=== PATIENT | female | born 1995 | race Two or more races ===

== ENCOUNTER 2017-12-28 20:05 | Emergency (ER) | payer BC ==
[2017-12-28] MEDS ORDERED: ONDANSETRON 4 MG/2 ML VIAL ONE (20:07)
[2017-12-28] MEDS ORDERED: LORazepam 2 MG/ML INJ IVP ONE (20:14)
--- NOTE | 2017-12-28 20:14 | EDPHY ---
H & P Time Seen by Provider: 12/28/17 20:10 HPI/ROS: Chief complaint: Nausea and vomiting, vertigo after edible marijuana use History of present illness: This is a 22-year-old female who presents to the emergency department with EMS for evaluation of nausea and vomiting vertigo. Patient 8 multiple notable marijuana gum needs prior to arrival. She has started to feel on well. He does not use marijuana regularly. She is visiting from [facility]. No report of associated signs or symptoms including no fevers, no abdominal pain. Review of systems: A 10 point review of systems was obtained and other than described above was negative - Physical Exam Exam: General Appearance: Alert, nontoxic. Eyes: Pupils equal and round no pallor or injection. ENT, Mouth: Mucous membranes moist. Respiratory: There are no retractions, lungs are clear to auscultation. Cardiovascular: Regular rate and rhythm. Gastrointestinal: Abdomen is soft and non tender, no masses, bowel sounds normal. Neurological: Alert and oriented x4. Cranial nerves 2-12 grossly intact. Strength and sensation intact and symmetrical. Skin: Warm and dry, no rashes. Musculoskeletal: Neck is supple non tender. Extremities are symmetrical, full range of motion. Psychiatric: Patient is oriented X 3, there is no agitation. Constitutional: Initial Vital Signs Temperature (C) 36.6 C 12/28/17 20:20 Heart Rate 124 H 12/28/17 20:20 Respiratory Rate 16 12/28/17 20:20 Blood Pressure 116/84 H 12/28/17 20:20 O2 Sat (%) 100 12/28/17 20:20 O2 Delivery Mode Room Air Allergies/Adverse Reactions: No Known Allergies Allergy (Unverified 12/28/17 20:22) Medical Decision Making ED Course/Re-evaluation: Patient was brought to the emergency department by EMS for dizziness, nausea and vomiting after having edible marijuana. She was actively vomiting on presentation. However she was afebrile and vital signs were stable and she had a benign physical exam. She was given Zofran and IV hydrated. She was allowed to sober up in the emergency room. On re-evaluation she is alert and oriented x4. Sitting up in bed conversing with me. Repeat physical exam is benign. She states she feels fine with no complaints. She is comfortable being discharged home. Home care is discussed. Return precautions are given. Differential Diagnosis: Included but not limited to marijuana intoxication, alcohol intoxication other substance abuses - Data Points Medications Given: Discontinued Medications Lorazepam (Ativan Injection) 0.5 mg IVP EDNOW ONE Stop: 12/28/17 20:15 Last Admin: 12/28/17 21:49 Dose: Not Given Departure - Departure Disposition: Home, Routine, Self-Care Clinical Impression: Marijuana intoxication Qualifiers: Complication of substance-induced condition: uncomplicated Qualified Code(s): F12.920 - Cannabis use, unspecified with intoxication, uncomplicated Condition: Good Instructions: Cannabis Abuse (ED) Additional Instructions: Follow-up with a primary care doctor for recheck Avoid the use of marijuana and other drugs If symptoms worsen or new symptoms develop return to the emergency room for recheck Referrals: Patient,NotPresent [Unknown] - As per Instructions
[2017-12-28 20:22] VITALS: RESP 16; TEMP 97.9
[2017-12-28 22:45] VITALS: BP 111/65; PULSE 110; O2SAT 97
== END 2017-12-28 22:45 | disposition home or self-care (01) ==
DX: F12.920 Cannabis use, unspecified with intoxication, uncomplicated (principal)
CPT/HCPCS: J2405